=== PATIENT | male | born 1980 | race African-American/Black ===

== ENCOUNTER 2017-04-14 23:52 | Observation (INO) | payer OTHER ==
[~2017-04-14] VITALS: Ht 180.3 cm; Wt 130.4 kg
[~2017-04-14 23:52] MED LIST: DIFLUCAN150 MG PO; LAMISIL1% TP; PREDNISONE20 MG PO; PRINIVIL10 MG PO; TRIAMCINOLONE AC0.13 TP
[2017-04-15] VITALS (15 sets, daily range): BP systolic 116–166; BP diastolic 47–90; PULSE 58–100; TEMP 97.8–98.9
[2017-04-15 00:52] LABS: BASO # 0.1 (0.0-0.2); BASO % 0.4 % (0.0-2.0); EOS # 0.1 (0.0-0.7); EOS % 0.6 % (0-4.0); GRAN # 10.1 (1.4-6.5); GRAN % 72.1 % (42.2-75.2); HEMATOCRIT 44.9 % (42.0-52.0); HEMOGLOBIN 15.2 g/dl (13.5-18.0); LYMPH # 2.8 (1.2-3.4); LYMPH % 19.9 % (20.0-51.0); MEAN CELL VOLUME 91 fl (80.0-100.0); MEAN CORPUSCULAR HEMOGLOBIN 31 pg (27.0-31.0); MEAN CORPUSCULAR HGB CONC 34 g/dl (33.0-37.0); MEAN PLATELET VOLUME 10.9 fl (7.4-10.4); MONO # 0.9 (0.1-0.6); MONO % 6.6 % (1.7-9.3); PLATELET COUNT 175 K/mm3 (130-400); RED BLOOD COUNT 4.94 M/mm3 (4.20-5.60)
[2017-04-15 01:03] LABS: ADJUSTED CALCIUM 9.1 mg/dL (8.4-10.2); ALBUMIN 4.9 gm/dL (3.5-5.0); BILIRUBIN,TOTAL 0.9 mg/dL (0.0-1.0); CALCIUM 9.8 mg/dL (8.4-10.2); CREATININE, serum 1.43 mg/dL (0.66-1.25); POTASSIUM 4.2 mmol/L (3.4-5.0); TOTAL PROTEIN 8.5 gm/dL (6.4-8.2)
[2017-04-15 02:20] LABS: COLLECTION METHOD CLEAN CATCH
[2017-04-15 02:28] LABS: BUDDING YEAST Present /hpf; MUCOUS Present /lpf; PH 5 (5-8); SQUAMOUS EPITHELIAL 0-2 /hpf; URINE APPEARANCE Clear; URINE BACTERIA None Seen /hpf; URINE BILIRUBIN Negative (NEGATIVE); URINE BLOOD 3+ (NEGATIVE); URINE COLOR Yellow; URINE GLUCOSE Negative (NEGATIVE); URINE KETONE 1+ (NEGATIVE); URINE LEUKOCYTE ESTERASE Negative (NEGATIVE); URINE PROTEIN(semi-quant) 1+ (NEGATIVE); URINE RBC >50 /hpf; URINE UROBILINOGEN Negative (NEGATIVE)
[2017-04-15] MEDS ORDERED: ZESTRIL 20MG TA20 MG PO (04:52)
[2017-04-16 02:06] VITALS: BP 126/66; PULSE 83; TEMP 98.9
[2017-04-16 05:31] VITALS: BP 138/69; PULSE 73; TEMP 98.4
[2017-04-16 09:35] VITALS: BP 121/71; PULSE 66; TEMP 97.8
== END 2017-04-16 09:55 | disposition home or self-care (01) ==
LOC: COL.ER 23:52 → SURG 04-15 03:42
PROVIDERS: Emergency Medicine
DX: N20.1 Calculus of ureter (principal); I10 Essential (primary) hypertension; Z87.442 Personal history of urinary calculi; Z87.891 Personal history of nicotine dependence; G47.30 Sleep apnea, unspecified; K21.9 Gastro-esophageal reflux disease without esophagitis; F32.9 Major depressive disorder, single episode, unspecified
CPT/HCPCS: C1769; C2617; G0378; J0690; J0696; J1100; J1170; J1450; J2405; J2550; J2704; J2765; J3010; J7030; J7120; Q9967

== ENCOUNTER 2017-04-17 09:13 | Observation (INO) | payer OTHER ==
[~2017-04-17] VITALS: Ht 177.8 cm; Wt 130.6 kg
[~2017-04-17 09:13] MED LIST changes: +ZESTRIL 20MG TA20 MG PO
[2017-04-17 09:21] VITALS: BP 156/96; PULSE 82; TEMP 98.7
[2017-04-17 12:33] VITALS: BP 153/89; PULSE 72; TEMP 99.8
[2017-04-17 14:05] VITALS: BP 156/96; PULSE 82; TEMP 98.7
[2017-04-17 16:01] VITALS: BP 153/77; PULSE 66; TEMP 99.2
[2017-04-17 20:00] VITALS: BP 170/84; PULSE 70; TEMP 99.8
[2017-04-18 02:11] VITALS: BP 128/75; BP 152/67; BP 182/75; PULSE 67; PULSE 89; PULSE 94; TEMP 98.4; TEMP 99.2; TEMP 99.6
[2017-04-18 05:53] VITALS: BP 123/82; PULSE 65; TEMP 98
[2017-04-18 09:17] VITALS: BP 153/99; PULSE 63; TEMP 98.1
[2017-04-18 15:00] VITALS: BP 178/88; PULSE 72; TEMP 98.3
[2017-04-18 18:26] VITALS: BP 146/82; PULSE 72; TEMP 98.2
[2017-04-18 21:22] VITALS: BP 149/88; PULSE 63; TEMP 98.4
[2017-04-19 02:50] VITALS: BP 132/68; PULSE 68; TEMP 98.3
[2017-04-19 05:54] VITALS: BP 142/84; PULSE 71; TEMP 98
== END 2017-04-19 08:30 | disposition home or self-care (01) ==
LOC: SURG 09:13
DX: R10.9 Unspecified abdominal pain (principal); Z87.442 Personal history of urinary calculi
CPT/HCPCS: G0378; J1885; J2270; J2405

== ENCOUNTER 2020-09-23 13:02 | Emergency (ER) | payer OTHER ==
[~2020-09-23] VITALS: Ht 180.3 cm; Wt 136.4 kg
[2020-09-23 13:06] VITALS: TEMP 98.3
[2020-09-23] MEDS ORDERED: EFFEXOR-XR150 MG PO (13:13)
[2020-09-23] MEDS ORDERED: BUSPAR DIVIDOSE15 MG PO (13:14)
[2020-09-23] MEDS ORDERED: HCTZ 25MG TAB25 MG PO (13:14)
[2020-09-23] MEDS ORDERED: ZYRTEC 10MG10 MG PO (13:14)
[2020-09-23] MEDS ORDERED: PROTONIX 40MG T40 MG PO (13:15)
[2020-09-23] MEDS ORDERED: KLOR-CON SPRIN10 MEQ PO (13:16)
[2020-09-23] MEDS ORDERED: DESYREL 50MG50 MG PO (13:16)
[2020-09-23 13:24] LABS: BASO # 0.1 (0.0-0.2); BASO % 0.7 % (0.0-2.0); EOS # 0.3 (0.0-0.7); EOS % 2.9 % (0-4.0); GRAN # 5.9 (1.4-6.5); GRAN % 56.6 % (42.2-75.2); HEMATOCRIT 45.2 % (42.0-52.0); HEMOGLOBIN 15.4 g/dl (13.5-18.0); LYMPH # 3.6 (1.2-3.4); LYMPH % 33.9 % (20.0-51.0); MEAN CELL VOLUME 92 fl (80.0-100.0); MEAN CORPUSCULAR HEMOGLOBIN 31 pg (27.0-31.0); MEAN CORPUSCULAR HGB CONC 34 g/dl (33.0-37.0); MEAN PLATELET VOLUME 10.4 fl (7.4-10.4); MONO # 0.6 (0.1-0.6); MONO % 5.4 % (1.7-9.3); PLATELET COUNT 205 K/mm3 (130-400); RED BLOOD COUNT 4.91 M/mm3 (4.20-5.60); REDCELL DISTRIBUTION WIDTH-CV 14.9 % (11.5-14.5)
[2020-09-23 13:38] LABS: ALBUMIN 4.4 gm/dL (3.5-5.0); BILIRUBIN,TOTAL 0.3 mg/dL (0.0-1.0); CALCIUM 9.7 mg/dL (8.4-10.2); CREATININE, serum 0.92 (0.66-1.25); TOTAL PROTEIN 8.4 gm/dL (6.4-8.2)
[2020-09-23] MEDS ORDERED: ATARAX 25MG25 MG/TAB PO (14:51)
[2020-09-23] MEDS ORDERED: PREDNISONE20 MG PO (14:51)
[2020-09-23] MEDS ORDERED: PEPCID 20MG TAB20 MG PO (14:51)
[2020-09-23] MEDS ORDERED: NORVASC 10MG10 MG PO (14:53)
[2020-09-23 15:05] VITALS: BP 152/116; PULSE 68
== END 2020-09-23 15:08 | disposition home or self-care (01) ==
LOC: COL.ER 13:02
PROVIDERS: Emergency Medicine
DX: T78.3XXA Angioneurotic edema, initial encounter (principal); I10 Essential (primary) hypertension; Z88.8 Allergy status to other drugs, medicaments and biological substances; Z79.899 Other long term (current) drug therapy; X58.XXXA Exposure to other specified factors, initial encounter
CPT/HCPCS: J1200; J2930; J7030

== ENCOUNTER 2021-03-05 15:00 | Emergency (ER) | payer OTHER ==
[~2021-03-05] VITALS: Ht 180.3 cm; Wt 137.3 kg
[~2021-03-05 15:00] MED LIST changes: +ATARAX 25MG25 MG/TAB PO; +BUSPAR DIVIDOSE15 MG PO; +DESYREL 50MG50 MG PO; +EFFEXOR-XR150 MG PO; +HCTZ 25MG TAB25 MG PO; +KLOR-CON SPRIN10 MEQ PO; +NORVASC 10MG10 MG PO; +PEPCID 20MG TAB20 MG PO; +PROTONIX 40MG T40 MG PO; +ZYRTEC 10MG10 MG PO
[2021-03-05 15:12] VITALS: TEMP 98.1
[2021-03-05] MEDS ORDERED: NAPROSYN500 MG PO (15:59)
[2021-03-05 16:06] VITALS: BP 151/92; PULSE 99
== END 2021-03-05 16:07 | disposition home or self-care (01) ==
LOC: COL.ER 15:00
DX: M25.475 Effusion, left foot (principal); I10 Essential (primary) hypertension; Z79.899 Other long term (current) drug therapy